=== PATIENT | female | born 2000 | race Caucasian/White ===

== ENCOUNTER 2025-08-17 12:48 | Emergency (ER) | payer OTHER ==
[~2025-08-17] VITALS: Ht 162.6 cm; Wt 55.0 kg
[2025-08-17 13:11] VITALS: TEMP 36.9; O2SAT 98
[2025-08-17] MEDS ORDERED: LIDO-53 TP (18:12)
[2025-08-17] MEDS ORDERED: IBUP-1455 MT (18:12)
[2025-08-17] MEDS: LIDOCAINE 5% PATCH TOP SCH (18:19)
[2025-08-17] MEDS: IBUPROFEN 600MG TABLET PO ONE (18:19)
[2025-08-17 18:27] VITALS: BP 128/90; PULSE 74; RESP 18; O2SAT 100
== END 2025-08-17 18:27 | disposition home or self-care (01) ==
LOC: ER 12:58
DX: S16.1XXA Strain of muscle, fascia and tendon at neck level, initial encounter (principal); R51.9 Headache, unspecified; M25.512 Pain in left shoulder; M25.511 Pain in right shoulder; Z90.710 Acquired absence of both cervix and uterus; X58.XXXA Exposure to other specified factors, initial encounter; Y93.89 Activity, other specified; Y92.410 Unspecified street and highway as the place of occurrence of the external cause; Y99.8 Other external cause status
CPT/HCPCS: 71045; 73030; 99284